=== PATIENT | female | born 1940 | race Caucasian/White ===

== ENCOUNTER 2024-07-14 11:59 | Outpatient (CLI) | payer MEDICARE | END 2024-07-14 12:00 | disposition home or self-care (01) | LOC: CSHMAMMO 11:59 | PROVIDERS: ATTEND Family Medicine | DX: Z12.31 Encounter for screening mammogram for malignant neoplasm of breast (principal); M81.0 Age-related osteoporosis without current pathological fracture; N95.9 Unspecified menopausal and perimenopausal disorder | CPT/HCPCS: 77063; 77067; 77080 ==